=== PATIENT | female | born 1995 | race Caucasian/White ===

== ENCOUNTER 2021-06-10 09:02 | Inpatient (IN) ==
[2021-06-10] MEDS ORDERED: CITRIC ACID/SODIUM CITRATE 30 ML UDCUP PO ONE ×2 (11:59→18:30)
[2021-06-10] MEDS ORDERED: FAMOTIDINE 20 MG/2 ML VIAL IV ONE ×3 (11:59→18:30)
[2021-06-10] MEDS ORDERED: ceFAZolin 2,000 MG/50 ML DUPLEX IV ONE ×2 (11:59→18:30)
[2021-06-10 12:19] LABS: Basophils % 0.3 % (0.0-0.8); Eosinophils # 0.1 10*3/uL (0.0-0.87); Hematocrit 34.7 VOL% (35.7-47.0); Hemoglobin 12.2 GM/DL (12.0-16.0); Immature Granulocytes % 0.8 %; Immature Granulocytes Absolute 0.09 #; Lymphocytes # 2.5 10*3/uL (1.4-4.0); Lymphocytes % 22.9 % (21.3-54.2); Mean Corpuscular HGB Conc 35.2 GM/DL (32-36); Mean Corpuscular Volume 97.5 FL (87-102); Mean Platelet Volume 9.9 FL (9.6-12.0); Platelet Count 176 T/CUMM (130-400); Red Blood Count 3.56 MC/CUMM (3.8-5.5); White Blood Count 10.9 T/CUMM (4-12)
[2021-06-10] MEDS ORDERED: OXYTOCIN/LR 20 UNIT/1,000 ML BAG IV ONE ×3 (12:39→23:45)
[2021-06-10] MEDS: LACTATED RINGERS 1,000 ML IV SCH ×2 (13:47→18:46)
[2021-06-10] MEDS ORDERED: CITRIC ACID/SODIUM CITRATE 30 ML UDCUP ONE (18:07)
[2021-06-10] MEDS ORDERED: miSOPROStoL 200 MCG TABLET ONE (18:10)
[2021-06-10] MEDS ORDERED: OXYTOCIN/LR 0 UNIT/0 ML BAG IV ONE (18:11)
[2021-06-10] MEDS ORDERED: METHYLERGONOVINE 0.2 MG/1 ML AMP ONE (18:11)
[2021-06-10] MEDS ORDERED: TRANEXAMIC ACID 1,000 MG/10 ML VIAL ONE (18:11)
[2021-06-10] MEDS ORDERED: SODIUM CHLORIDE 0.9% 0 ML IV ONE (18:11)
[2021-06-10] MEDS ORDERED: CARBOPROST TROMETHAMINE 250 MCG/ML AMP IM ONE (18:12)
[2021-06-10] MEDS ORDERED: BUPIVACAINE SPINAL 0.75% 2 ML AMP SPINAL ONE (18:39)
[2021-06-10] MEDS ORDERED: ACETAMINOPHEN INJ 1,000 MG/100 ML VIAL IV ONE (18:42)
[2021-06-10] MEDS ORDERED: ONDANSETRON 4 MG/2 ML VIAL ONE (18:42)
[2021-06-10] MEDS ORDERED: KETOROLAC 30 MG/1 ML VIAL ONE (18:42)
[2021-06-10] MEDS ORDERED: DEXAMETHASONE 4 MG/1 ML VIAL ONE (18:42)
[2021-06-10 19:44] LABS: Cord Venous Blood HCO3 23.8 MMOL/L; Cord Venous Blood PCO2 40.8 MMHG; Cord Venous Blood PO2 23.9 MMHG
[2021-06-10] MEDS ORDERED: IBUPROFEN 800 MG TABLET PO PRN (20:00)
[2021-06-10] MEDS ORDERED: ONDANSETRON 4 MG/2 ML VIAL IV PRN (20:00)
[2021-06-10] MEDS ORDERED: RHO(D) IMMUNE GLOBULIN 300 MCG SYRINGE IM ONE (20:00)
[2021-06-10] MEDS ORDERED: ACETAMINOPHEN 325 MG TABLET PO PRN (20:00)
[2021-06-10] MEDS ORDERED: LACTATED RINGERS 1,000 ML IV SCH (20:00)
[2021-06-10] MEDS ORDERED: MAGNESIUM HYDROXIDE SUSP 30 ML UDCUP PO PRN (20:00)
[2021-06-10] MEDS ORDERED: oxyCODONE/ACETAMINOPHEN 5-325 MG TABLET PO PRN (20:02)
[2021-06-11] MEDS: ACETAMINOPHEN 500 MG TABLET PO SCH ×3 (01:23→12:41)
[2021-06-11] MEDS: KETOROLAC 30 MG/1 ML VIAL IV SCH ×3 (01:23→12:33)
[2021-06-11 06:05] LABS: Basophils % 0.1 % (0.0-0.8); Hematocrit 30.1 VOL% (35.7-47.0); Hemoglobin 10.9 GM/DL (12.0-16.0); Immature Granulocytes Absolute 0.17 #; Lymphocytes # 1.3 10*3/uL (1.4-4.0); Lymphocytes % 7.4 % (21.3-54.2); Mean Corpuscular HGB Conc 36.2 GM/DL (32-36); Mean Corpuscular Volume 95.9 FL (87-102); Mean Platelet Volume 10.7 FL (9.6-12.0); Monocytes % 4.8 % (1.7-12.7); Neutrophils % 86.7 % (38.7-73.9); Platelet Count 159 T/CUMM (130-400); Red Blood Count 3.14 MC/CUMM (3.8-5.5); White Blood Count 17.2 T/CUMM (4-12)
[2021-06-11 06:31] LABS: Band Neutrophils 2 % (0-10); Hypochromia Slight; Lymphocytes 8 % (20-55); Microcytosis Slight; Platelet Estimate Adequate; Segmented Neutrophils 88 % (50-85); Total Cells Counted 100
[2021-06-11] MEDS: DOCUSATE SODIUM 100 MG CAPSULE PO SCH ×3 (09:22→21:37)
[2021-06-11] MEDS: MULTIVITAMIN (PRENATAL) TABLET PO SCH (09:22)
[2021-06-11] MEDS: IBUPROFEN 800 MG TABLET PO PRN (20:12)
[2021-06-11] MEDS: SIMETHICONE CHEW 80 MG TABLET PO PRN (20:12)
[2021-06-12] MEDS: IBUPROFEN 800 MG TABLET PO PRN ×2 (03:48→09:58)
[2021-06-12] MEDS ORDERED: BISACODYL 10 MG SUPP RECTAL PRN (04:50)
[2021-06-12] MEDS: SIMETHICONE CHEW 80 MG TABLET PO PRN (04:53)
[2021-06-12] MEDS ORDERED: NEOMYCIN/POLYMYXIN/BACITRACIN OINT 0.9 GM PACK TOP SCH (09:00)
[2021-06-12] MEDS: MULTIVITAMIN (PRENATAL) TABLET PO SCH (09:18)
[2021-06-12] MEDS: DOCUSATE SODIUM 100 MG CAPSULE PO SCH (09:19)
[2021-06-12 12:12] VITALS: BP 117/67
[2021-06-12] MEDS ORDERED: DIPH/TET/ACEL PERT BOOSTER VACCINE 0.5 ML VIAL IM ONE (13:30)
== END 2021-06-12 14:58 | disposition home or self-care (01) | DRG 787 ==
LOC: N.LDOUT 09:02 → N.LD 09:03 → N.OB 23:30
PROVIDERS: ADMIT Obstetrics & Gynecology; ATTEND Obstetrics & Gynecology
PROC: LDCSECT (ICD-10-PCS; 2021-06-10 19:00)